=== PATIENT | female | born 1960 | race Caucasian/White ===

== ENCOUNTER → 2017-02-21 | Outpatient (CLI) | payer MEDICAID ==
[~2017-02-21] MED LIST: CETIRIZINE HCL10 MG PO; FLEXERIL10 MG PO; FLUOXETINE20 MG PO; FUROSEMIDE 20MG20 MG PO; LISINOPRIL HCTZ1 TAB PO; MECLIZINE HYDRO25 MG PO; MICRO-K 10 MEQ10 MEQ PO; MOTRIN 400MG.400 MG PO; PANTOPRAZOLE SO40 MG PO; TOPAMAX100 MG PO
[2017-02-21 20:37] LABS: AMPHETAMINES/METAMPHETAMINES NEGATIVE ng/mL (<1000)
== END ==
LOC: LAB 15:47
PROVIDERS: Nurse Practitioner Family
DX: Z79.899 Other long term (current) drug therapy (principal)